=== PATIENT | female | born 1965 | race Caucasian/White ===

== ENCOUNTER 2019-09-22 13:40 | Emergency (ER) | payer MEDICARE, MEDICAID ==
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
--- NOTE | 2019-09-22 14:33 | ED ---
Lower Extremity - HPI Summary HPI Summary: Patient is a 53 y/o F presenting to [facility] with complaints of an swollen, hard, purple, and painful area to the posterior of her right knee. Sx onset last night. Patient states that the area bulges when she stands up and ambulates. She notes that she walked a lot yesterday. Pressure aggravates her pain. She describes her pain as a pressure/heaviness. Patient notes that her family encouraged her to go to the ED for evaluation. Currently, she notes that her Sx have mostly resolved. No SOB noted. Patient declines US. Home medications and allergies are reviewed. - History of Current Complaint Chief Complaint: EDExtremityLower Stated Complaint: LUMP ON BACK OF RIGHT LEG PER PT Time Seen by Provider: 09/22/19 14:27 Hx Obtained From: Patient Onset of Pain: Days Onset/Duration: Days Severity Currently: Moderate Pain Intensity: 5 Pain Scale Used: 0-10 Numeric Timing: Lasting Days Location: Is Discrete @ - posterior right knee Associated Signs And Symptoms: Positive: Other - swelling, hardness, purple, painful area Aggravating Factor(s): Standing, Ambulation, Other - pressure - Allergies/Home Medications Allergies/Adverse Reactions: Allergies Allergy/AdvReac Type Severity Reaction Status Date / Time animal dander Allergy Hives Verified 09/22/19 13:46 lactose AdvReac Mild GI Upset Verified 09/22/19 13:46 latex AdvReac Mild Rash Verified 09/22/19 13:46 sucralfate [From Carafate] AdvReac Mild Rash Verified 09/22/19 13:46 aspirin AdvReac Vomiting Verified 09/22/19 13:46 Home Medications: Home Medications Omeprazole CAP (NF) [Prilosec CAP* 20 MG] 40 mg PO BID 04/14/12 [History Confirmed 09/22/19] Polyethylene Glycol 3350* [Miralax (17 GM DOSE TREVIN)] 17 gm PO DAILY PRN [History Confirmed 09/22/19] PMH/Surg Hx/FS Hx/Imm Hx Endocrine/Hematology History: Denies: Hx Anticoagulant Therapy, Hx Diabetes Cardiovascular History: Reports: Hx Angina, Hx Hypercholesterolemia, Other Cardiovascular Problems/Disorders - HIGH CHOLESTEROL Denies: Hx Coronary Artery Disease, Hx Hypertension, Hx Myocardial Infarction , Hx Pacemaker/ICD, Hx Valvular Heart Disease Respiratory History: Denies: Hx Asthma, Hx Chronic Obstructive Pulmonary Disease (COPD) GI History: Reports: Hx Gastroesophageal Reflux Disease - ON MEDICATION FOR History: Reports: Hx Kidney Infection - HX OF Musculoskeletal History: Reports: Hx Arthritis - IN NECK, Other Musculoskeletal History - left torn rotator cuff Sensory History: Reports: Hx Contacts or Glasses - GLASSES Denies: Hx Hearing Aid Opthamlomology History: Reports: Hx Contacts or Glasses - GLASSES Psychiatric History: Reports: Hx Anxiety - IN THE PAST, Hx Depression - IN THE PAST Denies: Hx Panic Disorder - Surgical History Surgery Procedure, Year, and Place: 2010-LEFT CARPAL TUNNEL RELEASE-[facility]. 2 LOWER BACK SURGERIES- -[facility]- 2ND SURGERY - SCREWS AND PAYTON AROUND L5. 1986- TUBAL LIGATION-[facility]. 2011- GALLBLADDER REMOVED-[facility]. 2009-MASS REMOVED FROM RIGHT BREAST-[facility]. [id number]. 2011- LEFT SHOULDER ROTATOR CUFF REPAIR-[facility] Hx Anesthesia Reactions: Yes - ROTATOR CUFF REPAIR-N/V- RESOLVED WITH MEDICATION AND REST - Immunization History Date of Tetanus Vaccine: utd Date of Influenza Vaccine: Not UTD Infectious Disease History: No Infectious Disease History: Denies: Traveled Outside the [place] in Last 30 Days - Family History Known Family History: Positive: Cardiac Disease - Mother with VT in her 40s, Hypertension, Diabetes - Social History Alcohol Use: None Hx Substance Use: No Substance Use Type: Reports: None Hx Tobacco Use: Yes Smoking Status (MU): Former Smoker Review of Systems Positive: Shortness Of Breath Positive: Myalgia - hard, painful area to the posterior of her right knee, Edema - swollen area to the posterior of her right knee Skin: Other - purple area to posterior of right knee All Other Systems Reviewed And Are Negative: Yes Physical Exam - Summary Physical Exam Summary: VITAL SIGNS: Reviewed. GENERAL: Patient is a well-developed and nourished female who is lying comfortable in the stretcher. Patient is not in any acute respiratory distress. HEAD AND FACE: No signs of trauma. No ecchymosis, hematomas or skull depressions. No sinus tenderness. EYES: PERRLA, EOMI x 2, No injected conjunctiva, no nystagmus. EARS: Hearing grossly intact. Ear canals and tympanic membranes are within normal limits. MOUTH: Oropharynx within normal limits. NECK: Supple, trachea is midline, no adenopathy, no JVD, no carotid bruit, no c- spine tenderness, neck with full ROM. CHEST: Symmetric, no tenderness at palpation. LUNGS: Clear to auscultation bilaterally. No wheezing or crackles. CVS: Regular rate and rhythm, S1 and S2 present, no murmurs or gallops appreciated. ABDOMEN: Soft, non-tender. No signs of distention. No rebound, no guarding, and no masses palpated. Bowel sounds are normal. EXTREMITIES: There is a small varicose vein to the posterior aspect of the right knee which is slightly tender on palpation, area no longer swollen, good pulses, good cap refill, no homans sign, no tenderness of the calf. FROM in all major joints, no cyanosis or clubbing. NEURO: Alert and oriented x 3. No acute neurological deficits. Speech is normal and follows commands. SKIN: Dry and warm. Triage Information Reviewed: Yes Vital Signs On Initial Exam: Initial Vitals Temp Pulse Resp BP Pulse Ox 98.9 F 89 19 148/86 98 09/22/19 13:43 09/22/19 13:43 09/22/19 13:43 09/22/19 13:43 09/22/19 13:43 Vital Signs Reviewed: Yes Procedures - Sedation Patient Received Moderate/Deep Sedation with Procedure: No Diagnostics - Vital Signs Vital Signs Temp Pulse Resp BP Pulse Ox 09/22/19 13:43 98.9 F 89 19 148/86 98 - Laboratory Lab Statement: Any lab studies that have been ordered have been reviewed, and results considered in the medical decision making process. Lower Extremity Course/Dx - Course Assessment/Plan: This patient is a 53-year-old female with a chief complaint of right leg pain. In the physical exam the patient has an engorged varicose vein. Extend at palpation. The patient doesnt have any calf pain. She has good pulses. She has a negative Homans sign. Patients symptoms have improved since this morning after the patient elevated the leg. I believe that her symptoms are secondary to a varicose vein. She will be discharged home with follow-up with a primary care physician. - Diagnoses Provider Diagnoses: Varicose veins of right lower extremity Discharge ED - Sign-Out/Discharge Documenting (check all that apply): Patient Departure - discharge - Discharge Plan Condition: Stable Disposition: HOME Patient Education Materials: Peripheral Vascular Disease (ED) Referrals: Nate Malhotra MD [Primary Care Provider] - If Needed Additional Instructions: PLEASE RETURN TO ED FOR ANY NEW OR WORSENING SYMPTOMS. PLEASE FOLLOWUP WITH YOUR PRIMARY CARE PHYSICIAN NEEDED. - Billing Disposition and Condition Condition: STABLE Disposition: Home - Attestation Statements Document Initiated by Sukhi: Yes Documenting Scribe: MARLON MAY Provider For Whom Sukhi is Documenting (Include Credential): KOLE LUKE MD Scribe Attestation: I, MARLON MAY, scribed for KOLE LUKE MD on 09/22/19 at 2124. Scribe Documentation Reviewed: Yes Provider Attestation: The documentation as recorded by the MARLON delgado accurately reflects the service I personally performed and the decisions made by me, KOLE LUKE MD Status of Scribe Document: Viewed
[2019-09-22 14:40] VITALS: BP 136/71
== END 2019-09-22 14:39 | disposition home or self-care (01) ==
LOC: ED 13:40
DX: I83.91 Asymptomatic varicose veins of right lower extremity (principal); R22.2 Localized swelling, mass and lump, trunk; E78.00 Pure hypercholesterolemia, unspecified; K21.9 Gastro-esophageal reflux disease without esophagitis; Z86.79 Personal history of other diseases of the circulatory system; Z87.891 Personal history of nicotine dependence; Z79.899 Other long term (current) drug therapy
CPT/HCPCS: 99282